=== PATIENT | male | born 1975 ===

== ENCOUNTER 2022-01-14 19:52 | Emergency (ER) | payer OTHER ==
[~2022-01-14] VITALS: Ht 157.5 cm; Wt 60.8 kg
[2022-01-14] MEDS ORDERED: DICLOFENAC SODI75 MG PO (23:25)
== END 2022-01-15 00:17 | disposition home or self-care (01) ==
LOC: ER 19:52
DX: R10.32 Left lower quadrant pain (principal)

== ENCOUNTER 2022-03-31 13:46 | Emergency (ER) | payer OTHER ==
[~2022-03-31] VITALS: Ht 157.5 cm; Wt 62.1 kg
[~2022-03-31 13:46] MED LIST: DICLOFENAC SODI75 MG PO
== END 2022-03-31 18:37 | disposition home or self-care (01) ==
LOC: ER 13:46
DX: S01.511A Laceration without foreign body of lip, initial encounter (principal); W10.9XXA Fall (on) (from) unspecified stairs and steps, initial encounter; Y93.9 Activity, unspecified; Y92.9 Unspecified place or not applicable; R59.1 Generalized enlarged lymph nodes; M54.50 Low back pain, unspecified